=== PATIENT | female | born 1975 | race Caucasian/White ===

== ENCOUNTER 2017-09-26 23:28 | Inpatient (IN) ==
[2017-09-26] MEDS ORDERED: NITROGLYCERIN 2% OINT 1 INCH/GM PACK TOP STA (23:40)
[2017-09-26] MEDS ORDERED: MORPHINE 2 MG/1 ML SYRINGE IV STA (23:40)
[2017-09-26] MEDS ORDERED: ALBUTEROL/IPRATROPIUM 3 ML NEB RESP TX STA (23:40)
[2017-09-26] MEDS ORDERED: ASPIRIN 325 MG TABLET PO STA (23:40)
[2017-09-26] MEDS ORDERED: methylPREDNISolone SOD SUC 125 MG/2 ML VIAL IV STA (23:40)
[2017-09-26] MEDS ORDERED: ENOXAPARIN 100 MG/ML SYRINGE SUBCUT STA (23:40)
[2017-09-26] MEDS ORDERED: LORazepam 2 MG/1 ML VIAL IV STA (23:40)
[2017-09-26] MEDS ORDERED: FUROSEMIDE 100 MG/10 ML VIAL IV STA (23:40)
[2017-09-26] MEDS ORDERED: ONDANSETRON 4 MG/2 ML VIAL IV STA (23:40)
[2017-09-26 23:59] LABS: Basophils # 0.1 10*3/uL (0.0-0.2); Basophils % 0.4 % (0.0-0.8); Eosinophils # 0.4 10*3/uL (0.0-0.87); Eosinophils % 2.8 % (0.00-10.9); Hematocrit 36.2 VOL% (35.7-47.0); Hemoglobin 12.6 GM/DL (12.0-16.0); Immature Granulocytes % 0.4 %; Immature Granulocytes Absolute 0.06 #; Lymphocytes # 3.7 10*3/uL (1.4-4.0); Lymphocytes % 26.2 % (21.3-54.2); Mean Corpuscular HGB Conc 34.8 GM/DL (32-36); Mean Corpuscular Hemoglobin 32 PG (27-34); Mean Corpuscular Volume 90.5 FL (87-102); Mean Platelet Volume 10.5 FL (9.6-12.0); Monocytes # 0.5 10*3/uL (0.11-0.8); Monocytes % 3.4 % (1.7-12.7); Neutrophils # 9.3 10*3/uL (1.4-7.4); Neutrophils % 66.8 % (38.7-73.9); Platelet Count 200 T/CUMM (130-400); Red Cell Distribution Width 14.2 % (9.3-17.3); White Blood Count 13.9 T/CUMM (4-12)
[2017-09-27 00:09] LABS: PT Patient Result 10.8 SECS
[2017-09-27] MEDS ORDERED: MORPHINE 2 MG/1 ML SYRINGE ONE (00:13)
[2017-09-27] MEDS ORDERED: ONDANSETRON 4 MG/2 ML VIAL ONE (00:13)
[2017-09-27] MEDS ORDERED: ENOXAPARIN 100 MG/ML SYRINGE SUBCUT ONE (00:13)
[2017-09-27] MEDS ORDERED: NITROGLYCERIN 2% OINT 1 INCH/GM PACK TOP ONE (00:13)
[2017-09-27] MEDS ORDERED: methylPREDNISolone SOD SUC 125 MG/2 ML VIAL ONE (00:14)
[2017-09-27] MEDS ORDERED: FUROSEMIDE 100 MG/10 ML VIAL ONE (00:14)
[2017-09-27] MEDS ORDERED: ASPIRIN 325 MG TABLET ONE (00:14)
[2017-09-27] MEDS ORDERED: LORazepam 2 MG/1 ML VIAL ONE (00:14)
[2017-09-27 00:16] LABS: Albumin 3.6 G/DL (3.4-5.0); Bilirubin,Total 0.7 MG/DL (0.2-1.0); Calcium 8.4 MG/DL (8.5-10.1); Magnesium 1.5 MG/DL (1.8-2.4); Osmolality,Calculated 281.3 MOS/KG (273-304); Potassium 3.3 MMOL/L (3.5-5.1); Total Protein 6.5 G/DL (6.4-8.3)
[2017-09-27 00:21] LABS: Troponin I Only 0.093 NG/ML (0.00-0.045)
[2017-09-27] MEDS ORDERED: MAGNESIUM SULF RIDER 2 GM in PREMIX 1 EACH IV STA (00:22)
[2017-09-27] MEDS ORDERED: POTASSIUM CHLORIDE 20 MEQ TABLET PO STA (00:22)
[2017-09-27 00:49] LABS: Apearance,Urine CLOUDY (Clear); Bacteria,Urine Occasional /HPF (Few); Bilirubin,Urine Negative (Negative); Blood, Urine Small mg/dL (Negative); Glucose,Urine (UA) Negative (Negative); Hyaline Casts,Urine 4 /LPF (0-3); Ketones,Urine 5 mg/dL (Negative); Mucus,Urine Occasional /LPF (Occasional); Nitrite,Urine Negative (Negative); Protein,Urine 30 MG/DL; RBC,Urine 2 /HPF (0-4); Squamous Epithelial Cell,Urine Few /HPF (0-10); Urine Color Yellow (Yellow); Urine Specific Gravity 1.027 (1.001-1.035); Urine Urobilinogen < 2.0 EU/DL (0.2-1.0); WBC,Urine 11 /HPF (0-6)
[2017-09-27] MEDS ORDERED: MAGNESIUM SULF RIDER 50 ML IV ONE (00:58)
[2017-09-27] MEDS ORDERED: POTASSIUM CHLORIDE 20 MEQ TABLET PO ONE (00:58)
[2017-09-27 01:00] LABS: Barbiturates Screen,Urine Negative (Negative); Benzodiazepines Screen,Urine Negative (Negative); Cannabinoid Screen,Urine Negative (Negative); Opiate Screen,Urine Negative (Negative); Phencyclidine Screen,Urine Negative (Negative)
[2017-09-27] MEDS ORDERED: cefTRIAXone 1,000 MG in SODIUM CHLORIDE 0.9% 100 ML IV STA (01:20)
[2017-09-27 03:48] LABS: Risk Ratio 2.78
[2017-09-27] MEDS ORDERED: cefTRIAXone 1,000 MG VIAL ONE (04:18)
[2017-09-27] MEDS ORDERED: SODIUM CHLORIDE 0.9% 100 ML IV ONE (04:19)
[2017-09-27] MEDS: NYSTATIN 500,000 UNIT/5 ML UDCUP SWISH/SWAL SCH ×4 (08:25→20:03)
[2017-09-27] MEDS: POTASSIUM CHLORIDE 20 MEQ TABLET PO SCH (08:25)
[2017-09-27] MEDS: FUROSEMIDE 40 MG TABLET PO SCH (08:25)
[2017-09-27] MEDS: LISINOPRIL 2.5 MG TABLET PO SCH (08:25)
[2017-09-27] MEDS: CARVEDILOL 3.125 MG TABLET PO SCH ×2 (08:25→20:04)
[2017-09-27] MEDS: ASPIRIN EC 325 MG TABLET PO SCH (08:25)
[2017-09-27 08:43] LABS: Calcium 8.2 MG/DL (8.5-10.1); Magnesium 2.1 MG/DL (1.8-2.4); Osmolality,Calculated 279.4 MOS/KG (273-304); Potassium 3.8 MMOL/L (3.5-5.1)
[2017-09-27] MEDS: LORazepam 1 MG TABLET PO PRN ×2 (13:22→19:58)
[2017-09-27] MEDS ORDERED: ENOXAPARIN 40 MG/0.4 ML SYRINGE SUBCUT SCH (21:00)
[2017-09-27] MEDS: KETOROLAC 30 MG/1 ML VIAL IV PRN (21:14)
[2017-09-28] MEDS: KETOROLAC 30 MG/1 ML VIAL IV PRN (05:56)
[2017-09-28 07:53] VITALS: BP 118/88
[2017-09-28 07:59] LABS: Calcium 8.4 MG/DL (8.5-10.1); Osmolality,Calculated 286.8 MOS/KG (273-304); Potassium 3.7 MMOL/L (3.5-5.1)
[2017-09-28 08:00] LABS: Troponin I Only 0.06 NG/ML (0.00-0.045)
[2017-09-28] MEDS: LORazepam 1 MG TABLET PO PRN (08:22)
[2017-09-28] MEDS: ASPIRIN EC 325 MG TABLET PO SCH (08:22)
[2017-09-28] MEDS: LISINOPRIL 2.5 MG TABLET PO SCH (08:22)
[2017-09-28] MEDS: FUROSEMIDE 40 MG TABLET PO SCH (08:22)
[2017-09-28] MEDS: CARVEDILOL 3.125 MG TABLET PO SCH (08:22)
[2017-09-28] MEDS: POTASSIUM CHLORIDE 20 MEQ TABLET PO SCH (08:22)
[2017-09-28] MEDS: NYSTATIN 500,000 UNIT/5 ML UDCUP SWISH/SWAL SCH (08:23)
== END 2017-09-28 11:16 | disposition home or self-care (01) | DRG 292 ==
LOC: N.ED 23:28 → N.EDINP 09-27 02:48 → N.ICU 09-27 04:17 → N.2E 09-27 17:23
PROVIDERS: ADMIT Internal Medicine; ATTEND Internal Medicine